=== PATIENT | male | born 1960 ===

== ENCOUNTER → 2023-04-14 01:32 | Outpatient (CLI) | payer OTHER, SELFPAY ==
--- NOTE | 2023-04-14 | DI.RAD_ITS ---
Exam(s) XR LUMBAR SPINE AP, LAT EXAM: XR LUMBAR SPINE AP, LAT CLINICAL HISTORY: DISABILITY DETERMINATION,LOW BACK PAIN,? MILD MODERATE SEVERE,STATE SEVERIT. TECHNIQUE: 2D digital imaging was performed. Five views. COMPARISON: No exams were available for comparison FINDINGS: BONES: No fracture or destructive lesion. Vertebral body heights are maintained. DISKS: Mild narrowing of the L2-3 disc with small endplate osteophytes. Moderate narrowing of the L5 -S1 disc space. Small endplate osteophytes at these levels. Mild facet degenerative changes at L4-5 and L5-S1. ALIGNMENT: Lumbar spinal alignment is within normal limits. SOFT TISSUE: Normal. IMPRESSION: Degenerative changes greatest at L5-S1. DATA REPOSITORY: RADIATION DOSE DELIVERED:
--- NOTE | 2023-04-14 | DI.RAD_ITS ---
Exam(s) XR KNEE RT 3V AP,LAT,ALDO EXAM: XR KNEE RT 3V AP,LAT,ALDO CLINICAL HISTORY: DISABILITY DETERMINATION,RT KNEE PAIN,STATE SEVERITY OF DEGENERATIVE. TECHNIQUE: 2D digital imaging was performed. Three views. COMPARISON: No exams were available for comparison FINDINGS: BONES: No acute fracture is present. No bony destructive lesion is seen. JOINTS: The knee is normally aligned. No joint effusion is seen. No significant degenerative changes. SOFT TISSUE: Normal. IMPRESSION: Unremarkable radiographs of the right knee. DATA REPOSITORY: RADIATION DOSE DELIVERED:
== END ==
PROVIDERS: Visit Provider Pediatrics Pediatric Rheumatology
DX: M51.36 Other intervertebral disc degeneration, lumbar region (principal)
CPT/HCPCS: 73562; 72100